=== PATIENT | male | born 1955 | race African-American/Black ===

== ENCOUNTER 2021-10-13 13:27 | Inpatient (IN) | payer OTHER ==
[2021-10-13 13:48] VITALS: BMI 24.6
[2021-10-13] MEDS ORDERED: ACETAMINOPHEN 325 MG TABLET (FP) PO PRN (16:50)
[2021-10-13] MEDS ORDERED: MAGNESIUM CITRATE 300 ML BOTTLE PO PRN (16:50)
[2021-10-13] MEDS ORDERED: NICOTINE POLACRILEX 2 MG GUM BUC PRN (16:50)
[2021-10-13] MEDS ORDERED: MAG HYDROX/AL HYDROX/SIMETH 30 ML UNIT-DOSE CUP PO PRN (16:50)
[2021-10-13] MEDS ORDERED: BISMUTH SUBSALICYLATE 524 MG/30 ML PO PRN (16:50)
[2021-10-13] MEDS ORDERED: LOPERAMIDE HCL 2 MG CAPSULE PO PRN (16:50)
[2021-10-13] MEDS ORDERED: BENZOCAINE/MENTHOL (CHLORASEPTIC ) LOZENGE MM PRN (16:50)
[2021-10-13] MEDS ORDERED: NICOTINE 10 MG CARTRIDGE (INHALER) IH PRN (16:50)
[2021-10-13] MEDS ORDERED: IBUPROFEN 400 MG TABLET (FP) PO PRN (16:50)
[2021-10-13] MEDS ORDERED: MAGNESIUM HYDROX 2400MG/30ML ORAL SUSPENSION 30 ML CUP PO PRN (16:50)
[2021-10-13] MEDS ORDERED: DICYCLOMINE HCL 10 MG CAPSULE PO PRN (16:50)
[2021-10-13] MEDS ORDERED: ONDANSETRON *ODT* 4 MG TABLET SL PRN (16:50)
[2021-10-13] MEDS ORDERED: cloNIDine HCL 0.1 MG TABLET PO PRN (16:53)
[2021-10-13] MEDS: IBUPROFEN 600 MG TABLET (FP) PO PRN (20:08)
[2021-10-13] MEDS: diazePAM 5 MG TABLET PO PRN (20:09)
[2021-10-13] MEDS ORDERED: methaDONE HCL 10 MG TABLET (FOR DETOX USE ONLY) PO ONE (22:00)
[2021-10-13] MEDS: THIAMINE HCL 100 MG TABLET (FP) PO SCH (22:39)
[2021-10-13] MEDS: diazePAM 5 MG TABLET PO SCH (22:40)
[2021-10-14] MEDS: diazePAM 5 MG TABLET PO SCH ×4 (05:31→22:48)
[2021-10-14] MEDS: ACETAMINOPHEN 325 MG TABLET (FP) PO PRN ×2 (05:32→18:15)
[2021-10-14] MEDS: METHOCARBAMOL 500 MG TABLET PO PRN ×3 (05:32→21:05)
[2021-10-14] MEDS: PRENATAL VITAMINS W/ FOLIC ACID TABLET (FP) PO SCH (10:02)
[2021-10-14 11:04] LABS: HEMATOCRIT 36.3 % (35.4-49); HEMOGLOBIN 12.2 GM/dL (11.7-16.9); MCH 32.1 pg (25.7-33.7); MCHC 33.7 g/dl (32.0-35.9); MEAN CELL VOLUME 95.4 fl (80-96); PLATELET COUNT 123 10^3/uL (134-434); RBC 3.81 M/mm3 (4.00-5.60); RDW 12.5 % (11.9-15.9); WHITE BLOOD COUNT 2.7 K/mm3 (4.0-10.0)
[2021-10-14 11:27] LABS: ALBUMIN 3.4 g/dl (3.4-5.0); BILIRUBIN,TOTAL 0.9 mg/dL (0.2-1); BLOOD UREA NITROGEN 16.4 mg/dL (7-18); CALCIUM 8.8 mg/dL (8.5-10.1); CREATININE 0.9 mg/dL (0.55-1.3); TOT PROT 7.5 g/dl (6.4-8.2)
[2021-10-14] MEDS: IBUPROFEN 600 MG TABLET (FP) PO PRN (13:51)
[2021-10-14] MEDS: diazePAM 5 MG TABLET PO PRN (13:52)
[2021-10-14] MEDS: MELATONIN 5 MG TABLETS PO PRN (22:48)
[2021-10-14] MEDS: THIAMINE HCL 100 MG TABLET (FP) PO SCH (22:48)
[2021-10-15] MEDS: METHOCARBAMOL 500 MG TABLET PO PRN ×3 (04:43→17:53)
[2021-10-15] MEDS: ACETAMINOPHEN 325 MG TABLET (FP) PO PRN ×2 (04:44→10:45)
[2021-10-15] MEDS: diazePAM 5 MG TABLET PO SCH ×3 (06:23→22:51)
[2021-10-15] MEDS ORDERED: methaDONE HCL 10 MG TABLET (FOR DETOX USE ONLY) PO ONE (10:00)
[2021-10-15] MEDS: PRENATAL VITAMINS W/ FOLIC ACID TABLET (FP) PO SCH (10:43)
[2021-10-15] MEDS: hydrOXYzine PAMOATE 25 MG CAPSULE (FP) PO PRN (10:44)
[2021-10-15] MEDS: LIDOCAINE 5% TOPICAL PATCH TP SCH (10:44)
[2021-10-15 12:57] LABS: HEMOGLOBIN 12.7 GM/dL (11.7-16.9); MCH 32.4 pg (25.7-33.7); MCHC 34.2 g/dl (32.0-35.9); MEAN CELL VOLUME 94.6 fl (80-96); MEAN PLT VOLUME 8.4 fl (7.5-11.1); PLATELET COUNT 107 10^3/uL (134-434); RBC 3.91 M/mm3 (4.00-5.60); RDW 12.2 % (11.9-15.9)
[2021-10-15 13:15] LABS: WHITE BLOOD COUNT 1.6 K/mm3 (4.0-10.0)
[2021-10-15] MEDS: diazePAM 5 MG TABLET PO PRN (17:52)
[2021-10-15] MEDS ORDERED: LIDOCAINE PATCH REMOVAL MC SCH (22:00)
[2021-10-15] MEDS: LIDOCAINE PATCH REMOVAL MC SCH (22:48)
[2021-10-15] MEDS: THIAMINE HCL 100 MG TABLET (FP) PO SCH (22:48)
[2021-10-16] MEDS: diazePAM 5 MG TABLET PO PRN ×2 (00:58→10:36)
[2021-10-16] MEDS: METHOCARBAMOL 500 MG TABLET PO PRN ×3 (00:58→18:05)
[2021-10-16] MEDS: MELATONIN 5 MG TABLETS PO PRN ×2 (00:59→22:32)
[2021-10-16] MEDS: diazePAM 5 MG TABLET PO SCH ×2 (05:32→18:03)
[2021-10-16] MEDS: ACETAMINOPHEN 325 MG TABLET (FP) PO PRN (05:34)
[2021-10-16] MEDS: LIDOCAINE 5% TOPICAL PATCH TP SCH (10:35)
[2021-10-16] MEDS: PRENATAL VITAMINS W/ FOLIC ACID TABLET (FP) PO SCH (10:36)
[2021-10-16] MEDS: IBUPROFEN 600 MG TABLET (FP) PO PRN (10:40)
[2021-10-16 10:47] LABS: HEMATOCRIT 35.3 % (35.4-49); HEMOGLOBIN 11.9 GM/dL (11.7-16.9); MCH 32.2 pg (25.7-33.7); MCHC 33.8 g/dl (32.0-35.9); MEAN CELL VOLUME 95.2 fl (80-96); MEAN PLT VOLUME 8.3 fl (7.5-11.1); PLATELET COUNT 121 10^3/uL (134-434); RBC 3.71 M/mm3 (4.00-5.60); RDW 12.3 % (11.9-15.9); WHITE BLOOD COUNT 2.3 K/mm3 (4.0-10.0)
[2021-10-16] MEDS: LIDOCAINE PATCH REMOVAL MC SCH (22:32)
[2021-10-16] MEDS: THIAMINE HCL 100 MG TABLET (FP) PO SCH (22:33)
[2021-10-16] MEDS: hydrOXYzine PAMOATE 25 MG CAPSULE (FP) PO PRN (22:33)
[2021-10-17] MEDS: METHOCARBAMOL 500 MG TABLET PO PRN (05:06)
[2021-10-17] MEDS: ACETAMINOPHEN 325 MG TABLET (FP) PO PRN (05:06)
[2021-10-17] MEDS ORDERED: diazePAM 5 MG TABLET PO ONE (06:00)
[2021-10-17 09:26] VITALS: BP 106/82; PULSE 83; TEMP 97.1
[2021-10-17] MEDS: PRENATAL VITAMINS W/ FOLIC ACID TABLET (FP) PO SCH (10:46)
[2021-10-17] MEDS: LIDOCAINE 5% TOPICAL PATCH TP SCH (10:46)
== END 2021-10-17 09:52 | disposition other institution (70) | DRG 897 ==
LOC: YASAS 13:27 → Y6N 19:28
PROVIDERS: ADMIT Allergy & Immunology; ATTEND Surgery
PROC: HZ2ZZZZ Detoxification Services for Substance Abuse Treatment (ICD-10-PCS; principal; 2021-10-13)
DX: F11.23 Opioid dependence with withdrawal (principal); F14.20 Cocaine dependence, uncomplicated; F10.230 Alcohol dependence with withdrawal, uncomplicated; F17.213 Nicotine dependence, cigarettes, with withdrawal; D72.819 Decreased white blood cell count, unspecified; B18.2 Chronic viral hepatitis C; J44.9 Chronic obstructive pulmonary disease, unspecified; M16.10 Unilateral primary osteoarthritis, unspecified hip; M54.50 Low back pain, unspecified; G89.29 Other chronic pain; Z91.011 Allergy to milk products; Z91.013 Allergy to seafood
CPT/HCPCS: 36415; 80053; 82947; 85027; 86780; 87811; C9803-CS; U0003; U0005

== ENCOUNTER 2022-09-10 17:17 | Inpatient (IN) | payer OTHER ==
[2022-09-10 18:02] VITALS: BMI 23.4
[2022-09-10] MEDS ORDERED: cloNIDine HCL 0.1 MG TABLET PO PRN (18:32)
[2022-09-10] MEDS ORDERED: LOPERAMIDE HCL 2 MG CAPSULE PO PRN (18:32)
[2022-09-10] MEDS ORDERED: BISMUTH SUBSALICYLATE 524 MG/30 ML PO PRN (18:32)
[2022-09-10] MEDS ORDERED: NALOXONE HCL 0.4 MG/ML VIAL IM PRN (18:32)
[2022-09-10] MEDS ORDERED: ACETAMINOPHEN 325 MG TABLET (FP) PO PRN (18:32)
[2022-09-10] MEDS ORDERED: methaDONE HCL 10 MG TABLET (FOR DETOX USE ONLY) PO ONE (18:32)
[2022-09-10] MEDS ORDERED: MAG HYDROX/AL HYDROX/SIMETH 30 ML UNIT-DOSE CUP PO PRN (18:32)
[2022-09-10] MEDS ORDERED: NICOTINE POLACRILEX 2 MG GUM BUC PRN (18:32)
[2022-09-10] MEDS ORDERED: BACLOFEN 10 MG TABLET (FP) PO PRN (18:32)
[2022-09-10] MEDS ORDERED: BENZONATATE 200 MG CAPSULE PO PRN (18:32)
[2022-09-10] MEDS ORDERED: DICYCLOMINE HCL 10 MG CAPSULE PO PRN (18:32)
[2022-09-10] MEDS ORDERED: POLYETHYLENE GLYCOL (HEALTHYLAX) 3350 17 GM PACKET PO PRN (18:32)
[2022-09-10] MEDS ORDERED: MAGNESIUM HYDROX 2400MG/30ML ORAL SUSPENSION 30 ML CUP PO PRN (18:32)
[2022-09-10] MEDS ORDERED: BENZOCAINE/MENTHOL (CHLORASEPTIC ) LOZENGE MM PRN (18:32)
[2022-09-10] MEDS ORDERED: guaiFENesin 600 MG TABLET.ER (FP) PO PRN (18:32)
[2022-09-10] MEDS ORDERED: NALOXONE HCL (KLOXXADO) 8 MG SPRAY NS PRN (18:32)
[2022-09-10] MEDS ORDERED: AMMONIUM LACTATE 12% LOTION 225 GM BOTTLE TP PRN (18:42)
[2022-09-10] MEDS: MELATONIN 5 MG TABLETS PO SCH (22:28)
[2022-09-10] MEDS: IBUPROFEN 400 MG TABLET (FP) PO PRN (22:30)
[2022-09-10] MEDS: diazePAM 5 MG TABLET PO PRN (22:31)
[2022-09-10] MEDS: THIAMINE HCL 100 MG TABLET (FP) PO SCH (23:14)
[2022-09-11] MEDS ORDERED: methaDONE HCL 10 MG TABLET (FOR DETOX USE ONLY) PO ONE (10:00)
[2022-09-11] MEDS: PRENATAL VITAMINS W/ FOLIC ACID TABLET (FP) PO SCH (10:24)
[2022-09-11] MEDS: NICOTINE 7 MG/24 HOURS TOPICAL PATCH TD SCH (10:24)
[2022-09-11 11:01] LABS: POTASSIUM 4.7 mmol/L (3.5-5.1)
[2022-09-11 11:05] LABS: CALCIUM 8.8 mg/dL (8.5-10.1)
[2022-09-11 11:06] LABS: ALBUMIN 3.2 g/dl (3.4-5.0); BLOOD UREA NITROGEN 11.7 mg/dL (7-18); HEMATOCRIT 35.8 % (35.4-49); HEMOGLOBIN 12.4 GM/dL (11.7-16.9); MCH 32.6 pg (25.7-33.7); MCHC 34.5 g/dl (32.0-35.9); MEAN CELL VOLUME 94.5 fl (80-96); MEAN PLT VOLUME 7.8 fl (7.5-11.1); PLATELET COUNT 119 10^3/uL (134-434); RBC 3.79 M/mm3 (4.00-5.60); RDW 13.3 % (11.9-15.9); WHITE BLOOD COUNT 2.8 K/mm3 (4.0-10.0)
[2022-09-11 11:09] LABS: CREATININE 0.7 mg/dL (0.55-1.3)
[2022-09-11 11:10] LABS: BILIRUBIN,TOTAL 0.5 mg/dL (0.2-1)
[2022-09-11 11:11] LABS: TOT PROT 7.7 g/dl (6.4-8.2)
[2022-09-11] MEDS: MELATONIN 5 MG TABLETS PO SCH (22:27)
[2022-09-11] MEDS: THIAMINE HCL 100 MG TABLET (FP) PO SCH (22:27)
[2022-09-11] MEDS: IBUPROFEN 400 MG TABLET (FP) PO PRN (22:28)
[2022-09-12] MEDS ORDERED: methaDONE HCL 10 MG TABLET (FOR DETOX USE ONLY) PO ONE ×2 (10:00)
[2022-09-12] MEDS: PRENATAL VITAMINS W/ FOLIC ACID TABLET (FP) PO SCH (10:29)
[2022-09-12] MEDS: NICOTINE 7 MG/24 HOURS TOPICAL PATCH TD SCH (10:29)
[2022-09-12] MEDS: IBUPROFEN 600 MG TABLET (FP) PO PRN ×2 (10:36→17:30)
[2022-09-12] MEDS: diazePAM 5 MG TABLET PO PRN (17:31)
[2022-09-12] MEDS: MELATONIN 5 MG TABLETS PO SCH (22:07)
[2022-09-12] MEDS: IBUPROFEN 400 MG TABLET (FP) PO PRN (22:10)
[2022-09-12] MEDS: THIAMINE HCL 100 MG TABLET (FP) PO SCH (22:10)
[2022-09-13] MEDS: IBUPROFEN 600 MG TABLET (FP) PO PRN (05:38)
[2022-09-13 05:54] VITALS: RESP 17
[2022-09-13] MEDS: diazePAM 5 MG TABLET PO PRN (06:06)
[2022-09-13 09:13] VITALS: BP 136/80; PULSE 86; TEMP 98.5
[2022-09-13] MEDS ORDERED: methaDONE HCL 10 MG TABLET (FOR DETOX USE ONLY) PO ONE ×2 (10:00)
[2022-09-13] MEDS: NICOTINE 7 MG/24 HOURS TOPICAL PATCH TD SCH (10:21)
[2022-09-13] MEDS: PRENATAL VITAMINS W/ FOLIC ACID TABLET (FP) PO SCH (10:21)
[2022-09-14] MEDS ORDERED: methaDONE HCL 10 MG TABLET (FOR DETOX USE ONLY) PO ONE (06:00)
[2022-09-15] MEDS ORDERED: methaDONE HCL 10 MG TABLET (FOR DETOX USE ONLY) PO ONE (10:00)
== END 2022-09-13 09:50 | disposition home or self-care (01) | DRG 897 ==
LOC: YASAS 17:17 → Y6N 18:45
PROVIDERS: ADMIT Allergy & Immunology; ATTEND Surgery
PROC: HZ2ZZZZ Detoxification Services for Substance Abuse Treatment (ICD-10-PCS; principal; 2022-09-10)
DX: F11.23 Opioid dependence with withdrawal (principal); F14.20 Cocaine dependence, uncomplicated; F10.230 Alcohol dependence with withdrawal, uncomplicated; F17.210 Nicotine dependence, cigarettes, uncomplicated; J44.9 Chronic obstructive pulmonary disease, unspecified; M16.10 Unilateral primary osteoarthritis, unspecified hip; M54.50 Low back pain, unspecified; G89.29 Other chronic pain; Z99.89 Dependence on other enabling machines and devices; Z86.19 Personal history of other infectious and parasitic diseases; Z91.011 Allergy to milk products
CPT/HCPCS: 36415; 80053; 85027; 86780; 93005; 93010; C9803-CS; J0475; U0003; U0005

== ENCOUNTER 2023-12-07 15:32 | Inpatient (IN) | payer OTHER ==
[2023-12-07 16:29] VITALS: BMI 20.9
[2023-12-07] MEDS ORDERED: IBUPROFEN 400 MG TABLET (FP) PO PRN (19:07)
[2023-12-07] MEDS ORDERED: NICOTINE POLACRILEX 2 MG LOZENGE BC PRN (19:07)
[2023-12-07] MEDS ORDERED: BISMUTH SUBSALICYLATE 524 MG/30 ML PO PRN (19:07)
[2023-12-07] MEDS ORDERED: MAGNESIUM HYDROX 2400MG/30ML ORAL SUSPENSION 30 ML CUP PO PRN (19:07)
[2023-12-07] MEDS ORDERED: MAG HYDROX/AL HYDROX/SIMETH 30 ML UNIT-DOSE CUP PO PRN (19:07)
[2023-12-07] MEDS ORDERED: POLYETHYLENE GLYCOL (HEALTHYLAX) 3350 17 GM PACKET PO PRN (19:07)
[2023-12-07] MEDS ORDERED: BENZOCAINE/MENTHOL (CHLORASEPTIC ) LOZENGE MM PRN (19:07)
[2023-12-07] MEDS ORDERED: NALOXONE HCL 0.4 MG/ML VIAL IM PRN (19:07)
[2023-12-07] MEDS ORDERED: ONDANSETRON *ODT* 4 MG TABLET SL PRN (19:07)
[2023-12-07] MEDS ORDERED: BENZONATATE 200 MG CAPSULE PO PRN (19:07)
[2023-12-07] MEDS ORDERED: guaiFENesin 600 MG TABLET.ER (FP) PO PRN (19:07)
[2023-12-07] MEDS ORDERED: NALOXONE (NARCAN) HCL 4 MG/0.1 ML SPRAY NS PRN (19:07)
[2023-12-07] MEDS ORDERED: LOPERAMIDE HCL 2 MG CAPSULE PO PRN (19:07)
[2023-12-07] MEDS ORDERED: NICOTINE POLACRILEX 2 MG GUM BUC PRN (19:07)
[2023-12-07] MEDS ORDERED: P-EPHED 60MG/TRIPROLIDI 2.5MG TABLET PO PRN (19:07)
[2023-12-07] MEDS ORDERED: diazePAM 5 MG TABLET PO PRN (19:23)
[2023-12-07] MEDS: MELATONIN 5 MG TABLETS PO SCH (21:48)
[2023-12-07] MEDS: THIAMINE 100 MG TABLET PO SCH (21:48)
[2023-12-07] MEDS: methaDONE HCL 10 MG TABLET (FOR DETOX USE ONLY) PO ONE (21:50)
[2023-12-08] MEDS: PRENATAL VITAMINS W/ FOLIC ACID TABLET (FP) PO SCH (09:36)
[2023-12-08 14:26] LABS: CHLORIDE 105 mmol/L (98-107); SODIUM 141 mmol/L (136-145)
[2023-12-08 14:30] LABS: HEMATOCRIT 34.8 % (35.4-49); HEMOGLOBIN 11.9 GM/dL (11.7-16.9); MCH 32.2 pg (25.7-33.7); MCHC 34.3 g/dl (32.0-35.9); MEAN CELL VOLUME 93.9 fl (80-96); MEAN PLT VOLUME 7.8 fl (7.5-11.1); PLATELET COUNT 157 10^3/uL (134-434); RDW 13.8 % (11.9-15.9); WHITE BLOOD COUNT 3.1 K/mm3 (4.0-10.0)
[2023-12-08 14:32] LABS: BLOOD UREA NITROGEN 11.7 mg/dL (7-18); CALCIUM 8.3 mg/dL (8.5-10.1); GLUCOSE,RANDOM 120 mg/dL (74-106)
[2023-12-08 14:33] LABS: ANION GAP 6 mmol/L (4-13); CO2 29 mmol/L (21-32)
[2023-12-08 14:35] LABS: CREATININE 0.7 mg/dL (0.55-1.3); SGPT/ALT 14 U/L (13-61)
[2023-12-08 14:36] LABS: SGOT/AST 18 U/L (15-37)
[2023-12-08 14:37] LABS: BILIRUBIN,TOTAL 0.4 mg/dL (0.2-1); TOT PROT 7.1 g/dl (6.4-8.2)
[2023-12-08 14:38] LABS: ALK PHOS 78 U/L (45-117)
[2023-12-08] MEDS ORDERED: diazePAM 5 MG TABLET PO PRN (15:17)
[2023-12-08] MEDS: IBUPROFEN 600 MG TABLET (FP) PO PRN (19:48)
[2023-12-08] MEDS: MELATONIN 5 MG TABLETS PO SCH (22:59)
[2023-12-08] MEDS ORDERED: diazePAM 5 MG TABLET PO SCH (23:00)
[2023-12-09] MEDS: methaDONE HCL 10 MG TABLET (FOR DETOX USE ONLY) PO ONE (09:35)
[2023-12-09 10:47] LABS: HEMATOCRIT 34.8 % (35.4-49); HEMOGLOBIN 11.9 GM/dL (11.7-16.9); MCH 31.8 pg (25.7-33.7); MCHC 34.1 g/dl (32.0-35.9); MEAN CELL VOLUME 93.2 fl (80-96); PLATELET COUNT 163 10^3/uL (134-434); RBC 3.73 M/mm3 (4.00-5.60); RDW 13.5 % (11.9-15.9); WHITE BLOOD COUNT 3.2 K/mm3 (4.0-10.0)
[2023-12-10] MEDS ORDERED: diazePAM 5 MG TABLET PO SCH (06:00)
[2023-12-10] MEDS: LORazepam 0.5 MG TABLET PO PRN (09:55)
[2023-12-10] MEDS: ACETAMINOPHEN 325 MG TABLET (FP) PO PRN (22:43)
[2023-12-11] MEDS ORDERED: diazePAM 5 MG TABLET PO SCH (06:00)
[2023-12-11] MEDS: methaDONE HCL 10 MG TABLET (FOR DETOX USE ONLY) PO ONE (09:06)
[2023-12-11] MEDS ORDERED: ALBUTEROL SO4 0.083% IH SOL 2.5 MG/3 ML VIAL.NEB. NEB PRN ×2 (10:15→10:16)
[2023-12-11] MEDS: ALBUTEROL SO4 HFA INHALER IH PRN (10:25)
[2023-12-11] MEDS: MOMETASONE FUROATE 220 MCG/IH INHALER IH SCH (11:12)
[2023-12-12] MEDS ORDERED: diazePAM 5 MG TABLET PO ONE (06:00)
[2023-12-12 09:08] VITALS: BP 116/69; PULSE 83; RESP 17; TEMP 98.2
== END 2023-12-12 09:30 | disposition home or self-care (01) | DRG 897 ==
LOC: YASAS 15:32 → Y6N 19:38
PROVIDERS: ADMIT Allergy & Immunology; ATTEND Surgery
PROC: HZ2ZZZZ Detoxification Services for Substance Abuse Treatment (ICD-10-PCS; principal; 2023-12-07)
DX: F11.23 Opioid dependence with withdrawal (principal); F14.20 Cocaine dependence, uncomplicated; F19.280 Other psychoactive substance dependence with psychoactive substance-induced anxiety disorder; F19.282 Other psychoactive substance dependence with psychoactive substance-induced sleep disorder; F10.20 Alcohol dependence, uncomplicated; F12.20 Cannabis dependence, uncomplicated; F17.210 Nicotine dependence, cigarettes, uncomplicated; F41.9 Anxiety disorder, unspecified; J43.0 Unilateral pulmonary emphysema [MacLeod's syndrome]; B18.2 Chronic viral hepatitis C; M16.0 Bilateral primary osteoarthritis of hip; M54.50 Low back pain, unspecified; G89.29 Other chronic pain; Z99.89 Dependence on other enabling machines and devices
CPT/HCPCS: 36415; 80053; 80305; 80307; 83036; 85027; 86780; 93005; 93010